=== PATIENT | female | born 1950 | race Asian ===

== ENCOUNTER 2022-11-29 19:05 | Emergency (ER) | payer OTHER ==
[~2022-11-29] VITALS: Ht 165.1 cm; Wt 122.5 kg
[2022-11-29 19:05] VITALS: TEMP 97.4
[2022-11-29 19:44] LABS: POTASSIUM 4.3 mmol/L (3.6-5.2)
[2022-11-29 19:49] LABS: PLATELET COUNT 302 K/uL (152-353)
[2022-11-29 20:30] VITALS: BP 152/93
[2022-11-30] MEDS ORDERED: DIVALPROEX125 MG PO (12:33)
[2022-11-30] MEDS ORDERED: RISP1TAB PO (12:34)
[2022-11-30] MEDS ORDERED: OMEP20CA PO (12:34)
[2022-11-30] MEDS ORDERED: SENNA LAX8.6 MG PO (12:35)
== END 2022-11-29 20:30 | disposition still patient (30) ==
LOC: ED 19:05
PROVIDERS: Emergency Medicine
DX: F91.3 Oppositional defiant disorder (principal); I10 Essential (primary) hypertension; Z11.52 Encounter for screening for COVID-19; Z04.6 Encounter for general psychiatric examination, requested by authority
CPT/HCPCS: 36415; 80053; 85027; 87635; 93005; 99283; U0003

== ENCOUNTER 2023-01-28 16:42 | Emergency (ER) | payer OTHER ==
[~2023-01-28] VITALS: Ht 162.6 cm; Wt 111.1 kg
[2023-01-28 16:42] VITALS: BP 184/96; TEMP 97.8
[~2023-01-28 16:42] MED LIST: ACET-206 PO; CHOL100034 PO; DIVALPROEX125 MG PO; Depakote Sprinkles 1 PO; MAGNSUS68 PO; MIRALAX 17GM PAK PO; OLAN10INJ INJ; OLANZAPINE5 MG PO; OMEP20CA PO; PANTOPRAZOLE 40MG TA PO; RISP1TAB PO; SENNA LAX8.6 MG PO
[2023-01-28 17:12] LABS: PLATELET COUNT 159 K/uL (152-353)
[2023-01-28 17:25] LABS: POTASSIUM 4.3 mmol/L (3.6-5.2)
[2023-01-28] MEDS ORDERED: DIVALPROEX125 MG PO (20:23)
[2023-01-28] MEDS ORDERED: SENNA PLUS 50-81 CAP PO (20:27)
== END 2023-01-28 18:10 | disposition still patient (30) ==
LOC: ED 16:42
PROVIDERS: Internal Medicine
DX: R45.1 Restlessness and agitation (principal); Z11.52 Encounter for screening for COVID-19; Z04.6 Encounter for general psychiatric examination, requested by authority
CPT/HCPCS: 80053; 85027; 87635; 93005; 99285; U0003